=== PATIENT | male | born 1945 | race Caucasian/White ===

== ENCOUNTER → 2016-07-24 | Outpatient (CLI) | payer MEDICARE, OTHER ==
[~2016-07-24] MED LIST: ASPIRIN PO; AUGMENTIN PO; LASIX PO; LISINOPRIL PO; ZOCOR PO
--- NOTE | ~2016-07-24 | ST ---
Unit #: [id number] #: [id number] Patient: LUISITO WARREN [id number] [address] [address] [id number] O MR#: [id number] NAME: LUISITO WARREN. : 1945 SEX: M STUDY DATE/TIME: UNIT: [facility] ROOM: STUDY DESCRIPTION: Stress/Nuclear Attending Physician: Blayne Cuenca M.D. Referring Physician: Blayne Cuenca M.D. Primary Care Physician: Generic Doctor Not In System CARDIOLOGY REPORT EXAM Combined Nuclear Study as well as EKG part of the test DESCRIPTION Patient's baseline heart rate 81 beats/minute, blood pressure 147/76. Patient received IV Lexiscan as per protocol. At peak infusion, heart rate 93 beats/minute, blood pressure is 153/71. Patient's baseline EKG showing normal sinus rhythm, normal EKG. During Lexiscan infusion recovery, no further ST and T changes. Patient also received 11.19 mCi of Cardiolite at rest and 32.0 mCi of Cardiolite during stress. Both sets of images were compared. Patient shows a partial, very small defect at the apex in both sets of images. No other defect was noted. Patient also had gated SPECT scan which showed normal LV size and function. No wall motion abnormality detected. Ejection fraction 55%. INTERPRETATION OF THE TEST 1. EKG part of the test is negative for Lexiscan-induced ischemia. 2. Nuclear part of the test also negative for mitral ischemia. 3. Gated SPECT scan shows normal LV size and function. Dictated by... Paulette Grover/karo TD: 07/26/2016 08:16 JOB #: [id number] CARDIOLOGY REPORT X Miguel Ángel Garcia MD CARDIOLOGY REPORT
--- NOTE | ~2016-07-24 | TH ---
Unit #: [id number] #: [id number] Patient: LUISITO WARREN [id number] [address] [address] [id number] O MR#: [id number] NAME: LUISITO WARREN : 1945 SEX: M STUDY DATE/TIME: UNIT: [facility] ROOM: STUDY DESCRIPTION: Nuclear Study Attending Physician: Blayne Cuenca M.D. Referring Physician: Blayne Cuenca M.D. Primary Care Physician: Generic Doctor Not In System CARDIOLOGY REPORT EXAM Nuclear Study See stress test for results of nuclear study. Dictated by... Miguel Ángel Garcia M.D. NKS/karo TD: 07/26/2016 08:22 JOB #: [id number] CARDIOLOGY REPORT X Miguel Ángel Garcia MD CARDIOLOGY REPORT
== END | disposition home or self-care (01) ==
LOC: CNUC 08:26
DX: R07.9 Chest pain, unspecified (principal); R01.1 Cardiac murmur, unspecified; I05.0 Rheumatic mitral stenosis; I35.0 Nonrheumatic aortic (valve) stenosis; I51.7 Cardiomegaly
CPT/HCPCS: 78452; 93017; 93306; A9500; J2785